=== PATIENT | female | born 1970 | race Caucasian/White ===

== ENCOUNTER 2016-08-08 09:15 | Emergency (ER) | payer MEDICARE, MEDICAID ==
--- NOTE | 2016-08-08 09:39 | EDM.PDOC ---
<Janie Rivera - Last Filed: 08/08/16 10:36> ED HPI GENERAL MEDICAL PROBLEM - General Chief Complaint: General Stated Complaint: PT STATES,SHE IS IN PAINS BUT DONT KNOW WHERE Time Seen by Provider: 08/08/16 09:18 - History of Present Illness INITIAL COMMENTS - FREE TEXT/NARRATIVE: History of present illness: [45 yo female history of osteoarthritis presents to ED with diffuse pain. Patient is very restless. She cannot pinpoint where exactly her pain is. She states she had osteopenia. She did not fall or hurt herself. She was told to see chiropractor where she did not get a chance to get an appointment. She does not have numbness, tingling, parasthesia, weakness, n/v/d, or other symptoms. ] Review of systems: As per history of present illness and below otherwise all systems reviewed and negative. Past medical history: As per history of present illness and as reviewed below otherwise noncontributory. Surgical history: As per history of present illness and as reviewed below otherwise noncontributory. Social history: No reported history of drug or alcohol abuse. Family history: As per history of present illness and as reviewed below otherwise noncontributory. Physical exam: General: Well developed, well nourished in NAD HEENT: Atraumatic, normocephalic, pupils reactive, negative for conjunctival pallor or scleral icterus, mucous membranes moist, throat clear, neck supple, nontender, trachea midline. Lungs: Clear to auscultation, breath sounds equal bilaterally, chest nontender. Heart: S1S2, regular, negative for clicks, rubs, or JVD. Abdomen: Soft, nondistended, nontender. Negative for masses or hepatosplenomegaly. Negative for costovertebral tenderness. Pelvis: Stable nontender. Genitourinary: Deferred. Rectal: Deferred. Extremities: Atraumatic, negative for cords or calf pain. Neurovascular unremarkable. Neuro: Awake, alert, oriented. Cranial nerves II through XII unremarkable. Cerebellum unremarkable. Motor and sensory unremarkable throughout. Exam nonfocal. Diagnostics: [none] Therapeutics: [none] Impression: [osteoarhritis] Plan: [patient refused toradol shots, antiinflammatories. She wants to get checked out.] Definitive disposition and diagnosis as appropriate pending reevaluation and review of above. Generalized Pain Score (Numeric/FACES): 9 - Related Data Allergies Allergy/AdvReac Type Severity Reaction Status Date / Time No Known Allergies Allergy Verified 08/08/16 09:33 Home Meds: Home Meds Lisinopril 40 mg PO DAILY 08/08/16 [History] Past Medical History Cardiovascular History: Reports: High cholesterol, Hypertension Social & Family History - Tobacco Use Smoking Status *Q: Current Every Day Smoker Years of Tobacco use: 20 Packs/Tins Daily: 1 - Caffeine Use Caffeine Use: Reports: Coffee - Recreational Drug Use Recreational Drug Use: No ED ROS GENERAL - Review of Systems Review Of Systems: See Below (See history of present illness) ED EXAM, GENERAL - Physical Exam Exam: See Below (See history of present illness) Course - Vital Signs Last Recorded V/S: Last Vital Signs Temp 36.7 C 08/08/16 09:40 Pulse 107 H 08/08/16 09:40 Resp 20 08/08/16 09:40 BP 142/78 H 08/08/16 09:40 Pulse Ox 96 08/08/16 09:40 Departure - Departure Time of Disposition: 10:40 Disposition: Home, Self-Care 01 Condition: good Clinical Impression: Osteoarthritis Instructions: Osteoarthritis Referrals: PCP,None [Primary Care Provider] - Forms: ED Department Discharge Additional Instructions: The following information is given to patients seen in the emergency department who are being discharged to home. This information is to outline your options for follow-up care. We provide all patients seen in our emergency department with a follow-up referral. The need for follow-up, as well as the timing and circumstances, are variable depending upon the specifics of your emergency department visit. If you don't have a primary care physician on staff, we will provide you with a referral. We always advise you to contact your personal physician following an emergency department visit to inform them of the circumstance of the visit and for follow-up with them and/or the need for any referrals to a consulting specialist. The emergency department will also refer you to a specialist when appropriate. This referral assures that you have the opportunity for follow-up care with a specialist. All of these measure are taken in an effort to provide you with optimal care, which includes your follow-up. Under all circumstances we always encourage you to contact your private physician who remains a resource for coordinating your care. When calling for follow-up care, please make the office aware that this follow-up is from your recent emergency room visit. If for any reason you are refused follow-up, please contact the [facility] Emergency Department at and asked to speak to the emergency department charge nurse. <Krys Patino - Last Filed: 08/08/16 10:57> ED HPI GENERAL MEDICAL PROBLEM - History of Present Illness INITIAL COMMENTS - FREE TEXT/NARRATIVE: This is Dr. Patino dictating an addendum note as a supervising physician on this case. I agree with history and physical as above and examine the patient myself. She moves very easily in the ER bending and moving all joints without difficulty and jumping on and off the bed and walking around the room with great speed. She exhibits no distress. She refused all intervention at this time and would like to follow up with her chiropractor.
[2016-08-08 09:41] VITALS: BP 142/78
== END 2016-08-08 10:46 | disposition home or self-care (01) ==
LOC: MW.ED 09:15
DX: M19.90 Unspecified osteoarthritis, unspecified site (principal); E78.00 Pure hypercholesterolemia, unspecified; I10 Essential (primary) hypertension; F17.210 Nicotine dependence, cigarettes, uncomplicated
CPT/HCPCS: 99282; 99283